=== PATIENT | female | born 1965 | race American Indian/Alaskan Native ===

== ENCOUNTER 2019-04-06 05:40 | Day surgery (SDC) | payer MEDICAID, OTHER ==
[2019-04-06] MEDS ORDERED: Midazolam 1 MG/ML 2 ML SDV IV ONE ×7 (05:41→06:36)
[2019-04-06] MEDS ORDERED: fentaNYL 100 MCG/2 ML SDV IV ONE ×6 (05:41→06:46)
[2019-04-06] MEDS ORDERED: Dextrose 5%-0.45% NaCl 1,000 ML IV SCH (06:00)
[2019-04-06] MEDS ORDERED: Midazolam 1 MG/ML 2 ML SDV ONE (06:17)
[2019-04-06] MEDS ORDERED: fentaNYL 100 MCG/2 ML SDV ONE (06:18)
[2019-04-06 10:15] VITALS: BP 131/66; PULSE 55
--- NOTE | 2019-04-06 11:28 | OR ---
DATE: 04/06/2019 PROCEDURE PERFORMED: Total colonoscopy. INSTRUMENT USED: PCF-H190DL Olympus video colonoscope. PREMEDICATIONS: Fentanyl 200 mcg intravenous, Versed 4 mg intravenous. The procedure was done under pulse oximetry, BP recording, and radiation monitor. INDICATION: The patient with Hemoccult positive stools. Colonoscopic examination is done for detection of any polypoid lesions and removal, endoscopic hemostasis therapy if needed. DESCRIPTION OF PROCEDURE: Initial rectal exam was unremarkable. Rigid anoscopy was normal. The colonoscope was passed with relative ease up to the ileocecal area. Photographs were taken of the normal-appearing cecum, identified by landmarks of appendiceal orifice and double-bulged ileocecal folds. No bleeding was noted from any of the visualized areas at the commencement of the examination. The bowel preparation was found to be adequate, [place] scale 2 in all the regions. No stricture. No vascular ectasia. No large isolated ulcerations seen. No evidence of diffuse inflammatory bowel disease in the form of friability, contact bleeding, or ulcerations. No polyp or tumor mass identified. Probing the proximal sides of folds and flexures using adequate distention and clearing up the stool material, withdrawal of the scope was made, cecum to rectum, time over 6 minutes. No bleeding was noted from any of the visualized areas at the completion of the examination. IMPRESSION: Normal study. The patient tolerated the procedure well. [facility] /[id number]
--- NOTE | 2019-04-06 11:34 | LETTER ---
04/06/[address] [facility] [address] [place] [address] RE: PATRICIA PADGETT : [address] Oliver: Ms. Patricia Padgett had colonoscopic examination done this morning and she tolerated the procedure well. I herewith send a copy of the endoscopy note and photographs for your review. Thank you. Sincerely, [facility] /[id number]
== END 2019-04-06 09:00 | disposition home or self-care (01) ==
LOC: DL.ENDO 05:40
PROVIDERS: ATTEND Internal Medicine Gastroenterology
DX: R19.5 Other fecal abnormalities (principal); I10 Essential (primary) hypertension; G47.00 Insomnia, unspecified; E66.09 Other obesity due to excess calories; Z68.33 Body mass index [BMI] 33.0-33.9, adult; M19.90 Unspecified osteoarthritis, unspecified site; H91.90 Unspecified hearing loss, unspecified ear; Z88.6 Allergy status to analgesic agent; Z88.8 Allergy status to other drugs, medicaments and biological substances; Z91.011 Allergy to milk products
CPT/HCPCS: 45378; J2250; J3010; J7042; G0121

== ENCOUNTER 2019-04-15 07:03 | Day surgery (SDC) | payer MEDICAID, OTHER ==
[~2019-04-15 07:03] MED LIST: Dextrose 5%-0.45% NaCl 1,000 ML IV SCH; Midazolam 1 MG/ML 2 ML SDV ONE; Sodium Chloride 0.9% 10 ML Syringe FLUSH PRN; fentaNYL 100 MCG/2 ML SDV ONE
[2019-04-15] MEDS ORDERED: fentaNYL 100 MCG/2 ML SDV IV ONE ×3 (07:04→08:03)
[2019-04-15] MEDS ORDERED: Midazolam 1 MG/ML 2 ML SDV IV ONE ×3 (07:04→08:04)
--- NOTE | 2019-04-15 08:40 | OR ---
DATE: 04/15/2019 PROCEDURE: Esophagogastroduodenoscopy and multiple pinch biopsies. INSTRUMENT USED: GIF-HQ190 Olympus video panendoscope. PREMEDICATIONS: No oral or topical anesthesia used. Fentanyl 100 mcg intravenous, Versed 2 mg intravenous. The procedure was done under pulse oximetry, BP recording, and radiation monitor. INDICATION: The patient with Hemoccult-positive stools and colonoscopy. Negative for any bleeding areas. Esophagogastroduodenoscopy is performed for detection of any active erosive lesions, Cruz esophagus and/or malignancy also under consideration, H. pylori status to be determined, endoscopic hemostasis therapy if needed. DESCRIPTION OF PROCEDURE: The scope was passed with ease. Adequate visualization of the esophagus was made from proximal to distal areas. No upper esophageal lesions identified. No distal esophageal stricture. No uphill or downhill esophageal varices noted. No Luz Marina-Stovall tear. Grade A erosive changes were noted by [place] criteria. No esophageal polyp or tumor mass identified. Z-line was seen at around 39 cm distal to the oral verge, configuration consistent with grade 1 by ZAP classification. No proximal gastric varices noted. Gastric fundus examination by retroflexion showed no polypoid lesions. No gastric ulcer, malignant mass, or vascular ectasia identified. Duodenal bulb showed no ulcer. Visualized second part of the duodenum was unremarkable. Multiple pinch biopsies were obtained from the gastric antrum and proximal body and sent for PyloriTek test for H. pylori, and if negative in an hour, the tissues to be sent for histopathology. No bleeding was noted from any of the visualized areas at the completion of examination. Photographs were taken of the duodenal bulb, gastric antrum, fundus, and distal esophagus. IMPRESSION: Grade A gastroesophageal reflux disease. The patient tolerated the procedure well. [facility] /[id number]
[2019-04-15 11:09] VITALS: BP 162/87
--- NOTE | 2019-04-15 12:46 | LETTER ---
04/15/2019 Louann Oliver MD [facility] [address] [place] [address] RE: PATRICIA PADGETT : [address] Oliver: Ms. Patricia Padgett had esophagogastroduodenoscopy done this morning and she tolerated the procedure well. I herewith send a copy of the endoscopy note and photographs for your review. Thank you. Sincerely, [facility] /[id number]
== END 2019-04-15 10:14 | disposition home or self-care (01) ==
LOC: DL.ENDO 07:03
PROVIDERS: ATTEND Internal Medicine Gastroenterology
DX: K21.0 Gastro-esophageal reflux disease with esophagitis (principal); B96.81 Helicobacter pylori [H. pylori] as the cause of diseases classified elsewhere; I10 Essential (primary) hypertension; F11.20 Opioid dependence, uncomplicated; K90.49 Malabsorption due to intolerance, not elsewhere classified; G47.00 Insomnia, unspecified; N39.3 Stress incontinence (female) (male); E66.09 Other obesity due to excess calories; Z68.33 Body mass index [BMI] 33.0-33.9, adult; Z88.6 Allergy status to analgesic agent
CPT/HCPCS: 43239; 87077; J2250; J3010; J7042